=== PATIENT | female | born 1995 | race Hispanic/Latino ===

== ENCOUNTER 2023-01-12 01:40 | Observation (INO) | payer MEDICAID ==
[~2023-01-12] VITALS: Ht 162.6 cm; Wt 79.4 kg
[~2023-01-12 01:40] MED LIST: PREN-66 PO
[2023-01-12] MEDS ORDERED: MORPHINE 2 MG SYG ONE (01:59)
[2023-01-12] MEDS ORDERED: LACTATED RINGERS 1000ML 2,000 ML IV ONE (01:59)
[2023-01-12 02:03] LABS: BASOPHILS % (AUTO) 0.4 % (0.0-5.0); EOSINOPHILS % (AUTO) 0.8 % (0.0-8.0); HEMATOCRIT 41.2 % (36-48); LYMPHOCYTES % (AUTO) 37.5 % (21.0-51.0); MEAN CORPUSCULAR HEMOGLOBIN 28.8 pg (27.0-33.0); MEAN CORPUSCULAR HGB CONC 33.5 g/dL (32.0-36.0); MEAN CORPUSCULAR VOLUME 85.8 fL (79-99); MONOCYTES % (AUTO) 6.3 % (3.0-13.0); NEUTROPHILS % (AUTO) 54.5 % (40.0-77.0); PLATELET COUNT (AUTO) 369 K/uL (130-400); RED CELL DISTRIBUTION WIDTH 13.5 % (11.0-15.5); WHITE BLOOD COUNT (AUTO) 14.7 K/uL (4.8-10.8)
[2023-01-12] MEDS ORDERED: ACETAMINOPHEN 650 MG/20.3 ML UDCUP ONE (02:05)
[2023-01-12] MEDS ORDERED: ONDANSETRON 4MG INJ ONE (02:06)
[2023-01-12] MEDS ORDERED: ACETAMINOPHEN 650 MG/20.3 ML UDCUP PO STA (02:09)
[2023-01-12] MEDS ORDERED: ONDANSETRON 4MG INJ IVP STA (02:09)
[2023-01-12] MEDS ORDERED: LACTATED RINGERS 1000ML IV STA (02:09)
[2023-01-12] MEDS ORDERED: MORPHINE 2 MG SYG IVP STA ×2 (02:09→02:28)
[2023-01-12 02:20] LABS: CREATININE 0.6 mg/dL (0.5-1.5)
[2023-01-12 02:56] LABS: ALBUMIN 3.9 g/dL (3.5-5.0)
[2023-01-12 05:13] LABS: HEMATOCRIT 26.8 % (36-48)
[2023-01-12 05:30] VITALS: BP 112/54
[2023-01-12 05:33] LABS: CREATININE 0.6 mg/dL (0.5-1.5)
[2023-01-12 05:38] LABS: ALBUMIN 2.5 g/dL (3.5-5.0); TOTAL PROTEIN, SERUM 5.2 g/dL (6.0-8.3)
[2023-01-12] MEDS ORDERED: SUCCINYLCHOLINE CHLORIDE 20 MG/ML 10 ML VIAL ONE (06:26)
[2023-01-12] MEDS ORDERED: ROCURONIUM 10MG/1ML SYR 10 MG/ML ML ONE (06:27)
[2023-01-12] MEDS ORDERED: FENTANYL CITRATE PF 50 MCG/1 ML 2ML VIAL ONE (06:27)
[2023-01-12] MEDS ORDERED: PROPOFOL 10 MG/ML 20ML VIAL IV ONE (06:27)
[2023-01-12] MEDS ORDERED: METHYLERGONOVINE MALEATE 0.2 MG/1 ML ML IM SCH (06:30)
[2023-01-12] MEDS ORDERED: NEOSTIGMINE 5MG/5ML SYR IV ONE (06:55)
[2023-01-12] MEDS ORDERED: GLYCOPYRROLATE 1 MG/5 ML SYRINGE ONE (06:55)
[2023-01-12] MEDS ORDERED: OXYTOCIN-LR 20 UNITS/1000 ML 1,000 ML IV ONE ×2 (07:11→07:24)
[2023-01-12] MEDS ORDERED: IBUPROFEN 600 MG TABLET PO PRN (07:30)
[2023-01-12] MEDS ORDERED: OXYTOCIN-LR 20 UNITS/1000 ML 1,000 ML IV SCH (07:30)
[2023-01-12 09:10] LABS: HEMATOCRIT 30.7 % (36-48)
== END 2023-01-12 11:30 | disposition home or self-care (01) ==
LOC: EDH 01:40 → INTOOBSV 01:41 → EDHIP 01:41 → LDH 05:55
PROVIDERS: ADMIT Obstetrics & Gynecology; ATTEND Obstetrics & Gynecology
DX: O03.4 Incomplete spontaneous abortion without complication (principal); Z20.822 Contact with and (suspected) exposure to COVID-19; Z3A.01 Less than 8 weeks gestation of pregnancy
CPT/HCPCS: 59820; 96376; 96372; 96365; 96366; 96375; 80053 ×2; 84702; 85025; 85014 ×2; 85018 ×2; 86850; 86900; 86922; 86901; 83605; 36415; 88305; 87635; 76801; 99291; G0378 ×4; P9016 ×2; J7120; J3010; J3490 ×2; J2710; J0330; J2405; J2210; J2590 ×2; 93452; 93458; J2704

== ENCOUNTER 2023-03-01 00:30 | Emergency (ER) | payer MEDICAID ==
[~2023-03-01] VITALS: Ht 162.6 cm; Wt 77.6 kg
[2023-03-01 00:32] VITALS: BP 127/79
[2023-03-01] MEDS ORDERED: 0.9%NACL 1000ML 1,000 ML IV ONE (01:30)
[2023-03-01] MEDS ORDERED: FAMOTIDINE 20MG VIAL IV ONE (01:30)
[2023-03-01] MEDS ORDERED: KETOROLAC 30MG VIAL (30MG/ML) IVP ONE (01:30)
[2023-03-01] MEDS ORDERED: METOCLOPRAMIDE 10 MG/2 ML VIAL IVP ONE (01:30)
[2023-03-01] MEDS ORDERED: CEFTRIAXONE 2GM VIAL IVPB ONE (01:30)
[2023-03-01] MEDS ORDERED: ONDANSETRON 4MG INJ ONE (01:51)
[2023-03-01 01:53] LABS: BASOPHILS % (AUTO) 0.2 % (0.0-5.0); HEMATOCRIT 38.9 % (36-48); LYMPHOCYTES % (AUTO) 20.2 % (21.0-51.0); MEAN CORPUSCULAR HGB CONC 31.1 g/dL (32.0-36.0); MEAN CORPUSCULAR VOLUME 80.4 fL (79-99); NEUTROPHILS % (AUTO) 72.1 % (40.0-77.0); PLATELET COUNT (AUTO) 378 K/uL (130-400); RED BLOOD CELL COUNT(AUTO) 4.84 MIL/uL (4.00-5.50); RED CELL DISTRIBUTION WIDTH 14.8 % (11.0-15.5); WHITE BLOOD COUNT (AUTO) 20.2 K/uL (4.8-10.8)
[2023-03-01 01:55] LABS: BILIRUBIN,URINE NEGATIVE (NEGATIVE); COLOR,URINE YELLOW (YELLOW); GLUCOSE, URINE (UA) >=1000 mg/dL (NEGATIVE); KETONES,URINE 40 mg/dL (NEGATIVE); LEUKOCYTE ESTERASE ,URINE 250 Leu/uL (NEGATIVE); NITRATE,URINE 2+ (NEGATIVE); PH,URINE 5.5 (5.0-8.0); PROTEIN,URINE 20 mg/dL (NEGATIVE); UROBILINOGEN,URINE 0.2 mg/dL (0.2-1.0)
[2023-03-01 01:57] LABS: APPEARANCE,URINE SLIGHTLY CLOUDY (CLEAR)
[2023-03-01 01:58] LABS: BACTERIA,URINE MOD /HPF (None Seen); MUCUS,URINE RARE LPF (None Seen); SQUAMOUS EPITHELIAL CELL,UR MOD /HPF (0-2)
[2023-03-01] MEDS ORDERED: ONDANSETRON 4MG INJ IVP ONE (02:00)
[2023-03-01 02:10] LABS: CREATININE 0.7 mg/dL (0.5-1.5); POTASSIUM 3.4 mmol/L (3.5-5.1)
[2023-03-01 02:24] LABS: MAGNESIUM 2.2 mg/dL (1.80-2.40); THYROID STIMULATING HORMONE 1.25 uIU/mL (0.36-3.74)
[2023-03-01 02:32] LABS: PLATELET MORPHOLOGY LARGE PLTS PRESENT
[2023-03-01] MEDS ORDERED: CEPH500B PO (03:38)
[2023-03-01] MEDS ORDERED: NAPR-1192 PO (03:38)
== END 2023-03-01 04:10 | disposition home or self-care (01) ==
LOC: EDH 00:30
DX: J03.00 Acute streptococcal tonsillitis, unspecified (principal); N39.0 Urinary tract infection, site not specified; Z90.49 Acquired absence of other specified parts of digestive tract
CPT/HCPCS: 99284; 96365; 96375; 84443; 83735; 80048; 84702; 85025; 87077; 87088; 87186; 87880; 81001; 81025; 36415; J7030; J0696; J2405; J1885; S0028; J3490

== ENCOUNTER 2023-05-03 15:22 | Emergency (ER) | payer MEDICAID ==
[~2023-05-03] VITALS: Ht 162.6 cm; Wt 77.1 kg
[~2023-05-03 15:22] MED LIST changes: +CEPH500B PO; +NAPR-1192 PO
[2023-05-03 16:00] LABS: BASOPHILS # (AUTO) 0.04 K/uL (0.00-0.20); BASOPHILS % (AUTO) 0.4 % (0.0-5.0); EOSINOPHILS # (AUTO) 0.02 K/uL (0.00-0.70); EOSINOPHILS % (AUTO) 0.2 % (0.0-8.0); HEMATOCRIT 40.6 % (36-48); IMMATURE GRANULOCYTE ABSOLUTE 0.09 K/uL (0-1); LYMPHOCYTES # (AUTO) 0.5 K/uL (1.0-4.8); LYMPHOCYTES % (AUTO) 5.1 % (21.0-51.0); MEAN CORPUSCULAR HEMOGLOBIN 23.8 pg (27.0-33.0); MEAN CORPUSCULAR VOLUME 74.4 fL (79-99); MONOCYTES # (AUTO) 0.9 K/uL (0.1-1.0); MONOCYTES % (AUTO) 8.6 % (3.0-13.0); NEUTROPHILS # (AUTO) 8.6 K/uL (1.8-7.7); NEUTROPHILS % (AUTO) 84.8 % (40.0-77.0); PLATELET COUNT (AUTO) 316 K/uL (130-400); RED BLOOD CELL COUNT(AUTO) 5.46 MIL/uL (4.00-5.50); RED CELL DISTRIBUTION WIDTH 20.9 % (11.0-15.5); WHITE BLOOD COUNT (AUTO) 10.1 K/uL (4.8-10.8)
[2023-05-03 16:27] LABS: ALBUMIN 4.3 g/dL (3.5-5.0); BILIRUBIN,TOTAL 0.4 mg/dL (0.2-1.0); CREATININE 0.8 mg/dL (0.5-1.5); POTASSIUM 3.6 mmol/L (3.5-5.1); TOTAL PROTEIN, SERUM 9.5 g/dL (6.0-8.3)
[2023-05-03] MEDS ORDERED: KETOROLAC 15MG/ML VIAL (15MG/ML) IV ONE (16:30)
[2023-05-03] MEDS ORDERED: ONDANSETRON 4MG INJ IVP ONE (16:30)
[2023-05-03] MEDS ORDERED: LACTATED RINGERS 1000ML 1,000 ML IV ONE (16:30)
[2023-05-03 16:35] VITALS: BP 128/89; PULSE 116; RESP 20; O2SAT 100
[2023-05-03] MEDS ORDERED: 0.9%NACL 1000ML 1,000 ML IV ONE (18:00)
[2023-05-03 18:09] LABS: APPEARANCE,URINE CLEAR (CLEAR); BILIRUBIN,URINE NEGATIVE (NEGATIVE); COLOR,URINE YELLOW (YELLOW); GLUCOSE, URINE (UA) >=1000 mg/dL (NEGATIVE); KETONES,URINE 150 mg/dL (NEGATIVE); LEUKOCYTE ESTERASE ,URINE 75 Leu/uL (NEGATIVE); NITRATE,URINE 2+ (NEGATIVE); OCCULT BLOOD,URINE NEGATIVE (NEGATIVE); PH,URINE 5.5 (5.0-8.0); PROTEIN,URINE 20 mg/dL (NEGATIVE); UROBILINOGEN,URINE 0.2 mg/dL (0.2-1.0)
[2023-05-03 18:10] LABS: ADD UA MICROSCOPIC YES
[2023-05-03 18:11] LABS: BACTERIA,URINE MOD /HPF (None Seen); MUCUS,URINE RARE LPF (None Seen); SQUAMOUS EPITHELIAL CELL,UR RARE /HPF (0-2); WBC,URINE 26-50 /HPF (0-1)
[2023-05-03] MEDS ORDERED: METF-446 PO (18:31)
[2023-05-03] MEDS ORDERED: INSULIN HUMULIN R 100 UNIT/ML 3ML SQ ONE (19:00)
== END 2023-05-03 19:14 | disposition home or self-care (01) ==
LOC: EDH 15:22
DX: I10 Essential (primary) hypertension (principal); R07.89 Other chest pain; Z79.84 Long term (current) use of oral hypoglycemic drugs; Z90.49 Acquired absence of other specified parts of digestive tract
CPT/HCPCS: 99285; 96374; 71045; 96361; 96375; 84484; 80053; 85025; 87077; 87088; 87186; 82948 ×2; 82010; 81001; 81025; 36415; 93005; J7120; J2405; J1885

== ENCOUNTER 2023-07-22 15:40 | Emergency (ER) | payer MEDICAID ==
[~2023-07-22] VITALS: Ht 162.6 cm; Wt 79.4 kg
[~2023-07-22 15:40] MED LIST changes: +METF-446 PO
[2023-07-22 17:46] LABS: APPEARANCE,URINE CLOUDY (CLEAR); BILIRUBIN,URINE NEGATIVE (NEGATIVE); COLOR,URINE COLORLESS (YELLOW); GLUCOSE, URINE (UA) >=1000 mg/dL (NEGATIVE); KETONES,URINE NEGATIVE (NEGATIVE); LEUKOCYTE ESTERASE ,URINE NEGATIVE Leu/uL (NEGATIVE); NITRATE,URINE NEGATIVE (NEGATIVE); OCCULT BLOOD,URINE LARGE (NEGATIVE); PROTEIN,URINE 10 mg/dL (NEGATIVE); UROBILINOGEN,URINE 0.2 mg/dL (0.2-1.0)
[2023-07-22 17:54] LABS: ADD UA MICROSCOPIC YES; HCG,QUALITATIVE URINE POSITIVE (NEGATIVE)
[2023-07-22 17:55] LABS: BACTERIA,URINE FEW /HPF (None Seen); MUCUS,URINE RARE LPF (None Seen); RBC,URINE 26-50 /HPF (0-1); WBC,URINE 51-100 /HPF (0-1)
[2023-07-22 18:38] LABS: BASOPHILS # (AUTO) 0.05 K/uL (0.00-0.20); BASOPHILS % (AUTO) 0.4 % (0.0-5.0); EOSINOPHILS # (AUTO) 0.14 K/uL (0.00-0.70); EOSINOPHILS % (AUTO) 1.2 % (0.0-8.0); HEMATOCRIT 38.3 % (36-48); IMMATURE GRANULOCYTE ABSOLUTE 0.05 K/uL (0-1); LYMPHOCYTES # (AUTO) 4.5 K/uL (1.0-4.8); LYMPHOCYTES % (AUTO) 39.9 % (21.0-51.0); MEAN CORPUSCULAR HEMOGLOBIN 26.3 pg (27.0-33.0); MEAN CORPUSCULAR HGB CONC 31.9 g/dL (32.0-36.0); MEAN CORPUSCULAR VOLUME 82.5 fL (79-99); MONOCYTES # (AUTO) 0.8 K/uL (0.1-1.0); MONOCYTES % (AUTO) 6.9 % (3.0-13.0); NEUTROPHILS # (AUTO) 5.8 K/uL (1.8-7.7); NEUTROPHILS % (AUTO) 51.2 % (40.0-77.0); PLATELET COUNT (AUTO) 340 K/uL (130-400); RED BLOOD CELL COUNT(AUTO) 4.64 MIL/uL (4.00-5.50); RED CELL DISTRIBUTION WIDTH 16.2 % (11.0-15.5); WHITE BLOOD COUNT (AUTO) 11.3 K/uL (4.8-10.8)
[2023-07-22 18:49] LABS: CREATININE 0.6 mg/dL (0.5-1.5); POTASSIUM 3.5 mmol/L (3.5-5.1)
[2023-07-22 18:54] LABS: ALBUMIN 3.4 g/dL (3.5-5.0); BILIRUBIN,TOTAL 0.2 mg/dL (0.2-1.0); TOTAL PROTEIN, SERUM 7.1 g/dL (6.0-8.3)
[2023-07-22 19:49] VITALS: BP 125/68; PULSE 80; RESP 17; O2SAT 96
== END 2023-07-22 19:51 | disposition home or self-care (01) ==
LOC: EDH 15:40
DX: O20.0 Threatened abortion (principal); Z79.84 Long term (current) use of oral hypoglycemic drugs; Z90.49 Acquired absence of other specified parts of digestive tract
CPT/HCPCS: 36415; 76801; 80053; 81001; 81025; 84702; 85025; 86850; 86900; 86901; 87077; 87088; 87186

== ENCOUNTER 2023-11-08 23:13 | Emergency (ER) | payer MEDICAID, OTHER ==
[~2023-11-08] VITALS: Ht 162.6 cm; Wt 81.2 kg
[2023-11-08 23:46] LABS: APPEARANCE,URINE CLOUDY (CLEAR); BILIRUBIN,URINE NEGATIVE (NEGATIVE); COLOR,URINE LIGHT-YELLOW (YELLOW); GLUCOSE, URINE (UA) >=1000 mg/dL (NEGATIVE); KETONES,URINE 60 mg/dL (NEGATIVE); LEUKOCYTE ESTERASE ,URINE 500 Leu/uL (NEGATIVE); NITRATE,URINE 2+ (NEGATIVE); OCCULT BLOOD,URINE SMALL (NEGATIVE); PROTEIN,URINE NEGATIVE (NEGATIVE); UROBILINOGEN,URINE 0.2 mg/dL (0.2-1.0)
[2023-11-08 23:46] LABS: BASOPHILS # (AUTO) 0.03 K/uL (0.00-0.20); BASOPHILS % (AUTO) 0.3 % (0.0-5.0); EOSINOPHILS # (AUTO) 0.04 K/uL (0.00-0.70); EOSINOPHILS % (AUTO) 0.4 % (0.0-8.0); IMMATURE GRANULOCYTE ABSOLUTE 0.08 K/uL (0-1); LYMPHOCYTES # (AUTO) 1.6 K/uL (1.0-4.8); MEAN CORPUSCULAR HEMOGLOBIN 27.4 pg (27.0-33.0); MEAN CORPUSCULAR VOLUME 83.2 fL (79-99); MONOCYTES % (AUTO) 9.6 % (3.0-13.0); NEUTROPHILS # (AUTO) 7.6 K/uL (1.8-7.7); NEUTROPHILS % (AUTO) 73.9 % (40.0-77.0); PLATELET COUNT (AUTO) 280 K/uL (130-400); RED BLOOD CELL COUNT(AUTO) 5.29 MIL/uL (4.00-5.50); RED CELL DISTRIBUTION WIDTH 16.5 % (11.0-15.5); WHITE BLOOD COUNT (AUTO) 10.3 K/uL (4.8-10.8)
[2023-11-08 23:47] LABS: ADD UA MICROSCOPIC YES
[2023-11-08 23:48] LABS: BACTERIA,URINE FEW /HPF (None Seen); MUCUS,URINE RARE LPF (None Seen); SQUAMOUS EPITHELIAL CELL,UR RARE /HPF (0-2); WBC CLUMP FEW /HPF (0-1); WBC,URINE TNTC /HPF (0-1)
[2023-11-08 23:58] LABS: CREATININE 0.6 mg/dL (0.5-1.5); POTASSIUM 3.6 mmol/L (3.5-5.1)
[2023-11-09 00:02] LABS: SARS-CoV-2, RNA, NAAT NEGATIVE SARS CoV-2 (NEGATIVE)
[2023-11-09 00:03] LABS: ALBUMIN 3.2 g/dL (3.5-5.0); BILIRUBIN,DIRECT 0.1 mg/dL (0.0-0.3); BILIRUBIN,TOTAL 0.2 mg/dL (0.2-1.0); TOTAL PROTEIN, SERUM 6.8 g/dL (6.0-8.3)
[2023-11-09 00:03] LABS: RAPID GROUP A STREP positive (NEGATIVE)
[2023-11-09 00:05] LABS: INFLUENZA TYPE B Negative For Type B (NEGATIVE)
[2023-11-09 00:09] LABS: INFLUENZA TYPE A Positive For Type A (NEGATIVE)
[2023-11-09] MEDS: LACTATED RINGERS 1000ML 1,095 ML IV ONE (00:26)
[2023-11-09] MEDS: KETOROLAC 30MG VIAL (30MG/ML) IVP ONE (00:26)
[2023-11-09] MEDS: DEXAMETHASONE SOD PHOSPHATE 4 MG/ML 1ML VIAL IV ONE (00:26)
[2023-11-09] MEDS: METOCLOPRAMIDE 10 MG/2 ML VIAL IVP ONE (00:26)
[2023-11-09] MEDS: FAMOTIDINE 20MG VIAL IV ONE (00:27)
[2023-11-09 01:06] VITALS: PULSE 101; RESP 18
[2023-11-09] MEDS: ALBUTEROL 0.083% 2.5 MG/3 ML INH IH ONE (01:08)
[2023-11-09] MEDS ORDERED: ALBUHFA IH (01:54)
[2023-11-09] MEDS ORDERED: OSEL75 PO (01:54)
[2023-11-09] MEDS ORDERED: PHEN-847 PO (01:54)
[2023-11-09] MEDS: OSELTAMIVIR PHOSPHATE 75 MG CAP PO ONE (02:09)
[2023-11-09] MEDS: CEPHALEXIN 500 MG CAPSULE PO ONE (02:09)
[2023-11-09 03:20] VITALS: BP 124/78; PULSE 78; RESP 17; O2SAT 98
== END 2023-11-09 03:23 | disposition home or self-care (01) ==
LOC: EDH 23:13
DX: N39.0 Urinary tract infection, site not specified (principal); J11.1 Influenza due to unidentified influenza virus with other respiratory manifestations; J02.0 Streptococcal pharyngitis; Z20.822 Contact with and (suspected) exposure to COVID-19; Z79.899 Other long term (current) drug therapy; Z79.84 Long term (current) use of oral hypoglycemic drugs; Z98.890 Other specified postprocedural states
CPT/HCPCS: 99284; 87635; 80076; 80048; 85025; 87077; 87088; 87186; 87880; 87804 ×2; 81001; 81025; 36415; 96374; 96375; 94640; J1100; J7120; J3490; J1885; J2765